=== PATIENT | female | born 1985 | race Caucasian/White ===

== ENCOUNTER 2016-09-07 19:08 | Inpatient (IN) | payer BC ==
[~2016-09-07 19:08] MED LIST: ELAVIL10 MG PO; FLEXERIL10 MG PO; MOBIC7.5 M1 PO; NORCO 5/325 TAB1 TAB PO; TRI-SPRINTEC1 TAB PO
[2016-09-07] MEDS ORDERED: PRENA1 CHEW TA1.4 M1 (20:13)
[2016-09-07 20:21] LABS: BASO % 0.1 % (0-2); EOS % 0.9 % (0-7); EOSINOPHIL ABSOLUTE COUNT 0.1 tho/cmm (0.0-0.7); HCT-HEMATOCRIT 35.3 % (34.0-49.0); HGB-HEMOGLOBIN 12.2 gm/dl (12.0-15.5); IMMATURE GRANULOCYTES PERCENT 2.1 % (0-0.3); LYMPH ABSOLUTE COUNT 2.9 tho/cmm (0.8-4.5); MCH (MEAN CORPUSCULAR HGB) 29.9 pg (28.0-32.0); MCHC MEAN CORPUSCULAR HGB CONC 34.6 % (32.0-36.0); MCV (MEAN CELL VOLUME) 86.5 fl (82.0-96.0); MEAN PLATELET VOLUME 8.9 cmc (9.4-12.4); MONO % 6.3 % (0-12); MONOCYTE ABSOLUTE COUNT 0.9 tho/cmm (0.0-1.2); NEUTROPHIL ABSOLUTE COUNT 9.7 tho/cmm (1.6-8.0); NEUTROPHIL-AUTOMATED 9.7 tho/cmm (1.6-8.0); NEUTROPHILS % 69.6 % (40-80); PLATELET COUNT 190 tho/cmm (150-450); RED BLOOD COUNT 4.08 mil/cmm (4.00-5.20); RED CELL DISTRIBUTION WIDTH 13.4 % (12.4-16.4)
[2016-09-09 16:29] LABS: BASO % 0.2 % (0-2); EOSINOPHIL ABSOLUTE COUNT 0.2 tho/cmm (0.0-0.7); HCT-HEMATOCRIT 28.1 % (34.0-49.0); HGB-HEMOGLOBIN 9.5 gm/dl (12.0-15.5); IMMATURE GRANULOCYTES PERCENT 1.6 % (0-0.3); LYMPH % 15.3 % (20-45); LYMPH ABSOLUTE COUNT 2.8 tho/cmm (0.8-4.5); MCH (MEAN CORPUSCULAR HGB) 29.5 pg (28.0-32.0); MCHC MEAN CORPUSCULAR HGB CONC 33.8 % (32.0-36.0); MCV (MEAN CELL VOLUME) 87.3 fl (82.0-96.0); MEAN PLATELET VOLUME 8.5 cmc (9.4-12.4); MONO % 8.4 % (0-12); MONOCYTE ABSOLUTE COUNT 1.6 tho/cmm (0.0-1.2); NEUTROPHIL ABSOLUTE COUNT 13.6 tho/cmm (1.6-8.0); NEUTROPHIL-AUTOMATED 13.6 tho/cmm (1.6-8.0); NEUTROPHILS % 73.5 % (40-80); PLATELET COUNT 183 tho/cmm (150-450); RED BLOOD COUNT 3.22 mil/cmm (4.00-5.20); RED CELL DISTRIBUTION WIDTH 13.7 % (12.4-16.4); WHITE BLOOD COUNT 18.5 tho/cmm (4.0-10.0)
[2016-09-12] MEDS ORDERED: IBUPROFEN800 M1 PO (12:12)
[2016-09-12] MEDS ORDERED: NORCO 5-325 TA1 EACH PO (12:13)
== END 2016-09-12 15:50 | DRG 766 ==
LOC: LDR 19:08 → OBGD 09-09 01:13
PROVIDERS: ADMIT Obstetrics & Gynecology
PROC: 3E0P7GC Introduction of Other Therapeutic Substance into Female Reproductive, Via Natural or Artificial Opening (ICD-10-PCS; principal; 2016-09-08)
PROC: 10907ZC Drainage of Amniotic Fluid, Therapeutic from Products of Conception, Via Natural or Artificial Opening (ICD-10-PCS; principal; 2016-09-08)
PROC: 10D00Z1 Extraction of Products of Conception, Low, Open Approach (ICD-10-PCS; principal; 2016-09-08)
PROC: 3E0F7GC Introduction of Other Therapeutic Substance into Respiratory Tract, Via Natural or Artificial Opening (ICD-10-PCS; 2016-09-09)
DX: O36.63X0 Maternal care for excessive fetal growth, third trimester, not applicable or unspecified (principal); O62.1 Secondary uterine inertia; O63.1 Prolonged second stage (of labor); Z3A.40 40 weeks gestation of pregnancy; Z37.0 Single live birth
CPT/HCPCS: J0456; J0690; J1170; J2270; J2370; J2590; J2795; J7050